=== PATIENT | male | born 1960 | race Caucasian/White ===

== ENCOUNTER 2025-06-30 01:23 | Inpatient (IN) | payer MEDICARE, MEDICAID ==
[~2025-06-30] VITALS: Ht 185.4 cm; Wt 95.5 kg
[2025-06-30] VITALS (14 sets, daily range): BP systolic 95–167; BP diastolic 62–96; PULSE 58–81; RESP 10–16; TEMP 97.3–98.9; O2SAT 92–98
[~2025-06-30 01:23] MED LIST: ASPI-1397 PO; CARV12.53 PO; CHLO25TA68 PO; ERGO50CA PO; FAMO40TA7 PO; HYDR-3968 PO; LOSA50TA64 PO; MIRT-87 PO; NALO4SPR22 BOTHNARES; NIFE-72 PO; ONDA-243 PO; POLY510P31 PO; ROSU20TA98 PO; TAMS-55 PO; ZINC220C7 PO; ZOLP-679 PO
--- NOTE | 2025-06-30 01:41 | Physician Documentation ---
History of Present Illness ~ Chief Complaint: ALOC Stated Complaint: ALOC Time Seen by MD: 01:30 HPI Patient presents to the emergency room sent from [facility] for altered mental status. Last time known normal two days ago. Patient has a history of similar presentation a proximally one month ago and was taken to [facility] with diagnosis of polypharmacy. Patient has multiple sedating medications including morphine in baclofen. That has reported that family saw him on Monday and he has pretty much been sleeping all weekend since that time. GCS of 13. EMS reports small change in patient's mentation after Narcan and given. CT scan at sending facility was reassuring. Medication Reconciliation Allergies: Coded Allergies: No Known Drug Allergies (Verified Allergy, Unknown, 05/21/25) lactose (Unverified Adverse Reaction, Unknown, 05/21/25) latose intolerant per pt Scheduled Aspirin (Aspirin EC), 1 TAB PO DAILY, (Reported) Carvedilol (Carvedilol), 1 TAB PO BID, (Reported) Chlorpromazine HCl (Chlorpromazine HCl), 1 TAB PO DAILY, (Reported) Ergocalciferol (Vitamin D2) (Vitamin D2), 1 CAP PO DAILY, (Reported) Famotidine (Famotidine), 1 TAB PO DAILY, (Reported) Losartan Potassium (Losartan Potassium), 1 TAB PO DAILY, (Reported) Mirtazapine (Mirtazapine), 1 TAB PO HS, (Reported) Naloxone HCl (Naloxone HCl), 1 SPRAYS BOTHNARES PRN, (Reported) Nifedipine (Nifedipine Er), 1 TAB PO DAILY, (Reported) Polyethylene Glycol 3350 ([id number]), 17 GM PO DAILY, (Reported) Rosuvastatin Calcium (Rosuvastatin Calcium), 1 TAB PO HS, (Reported) Tamsulosin Hcl* (Flomax*), 0.4 MG PO BID, (Reported) Zinc Sulfate (Zinc-220), 1 CAP PO DAILY, (Reported) Zolpidem Tartrate (Ambien), 1 TAB PO HS, (Reported) Scheduled PRN Hydrocodone Bit/Acetaminophen (Hydrocodon-Acetaminoph 7.5-325), 1 TAB PO Q4H PRN for breakthrough pain, (Reported) ONDANSETRON ODT 4mg tablet (Ondansetron Odt), 1 TAB PO every 4 to 6 hours PRN for nausea/vomiting, (Reported) Past Medical History Patient History: (Cancer) Malignant carcinoid tumor FATHER FH: hypertension FATHER Review of Systems ROS Review of systems limited secondary to patient's clinical condition Physical Exam Vital Signs: Temperature: 98.6, Source: Oral, Heart Rate: 65, Respiratory Rate: 14, BP: 148/78, Pulse Oximetry: 99, Weight: 95.450 Oxygen Flow Rate: 2.0 Physical Exam General: Patient is sleeping, arousable to name. Head: Normocephalic and atraumatic. Eyes: Conjunctival normal. EOMI. PERRL. ENT: Mucous membranes moist. Neck: Supple, trachea is midline. Chest: Clear to auscultation bilaterally without rales, rhonchi, or wheezes. There is no accessory muscle use or retractions. Cardiac: RRR without murmurs, gallops, or rubs. Abd: Soft, nondistended, nontender, with normoactive bowel sounds. No guarding, rebound, or rigidity. Progress Results/Orders Results/Orders Orders - SEBASTIAN GALINDO MD Electrocardiogram (06/30/25 01:30) Page Hospitalist (06/30/25 01:41) Fill Out Med Reconciliation (06/30/25 01:41) Completed Orders - SEBASTIAN GALINDO MD Cbc/Diff (06/30/25 01:30) Electrocardiogram (06/30/25 01:30) BMP (06/30/25 01:30) MG (06/30/25 01:32) PHOS (06/30/25 01:32) Hgb A1c (06/30/25 01:45) PBNP (06/30/25 01:45) C-Reactive Protein (06/30/25 01:45) Vital Signs 06/30/25 06/30/25 01:34 01:45 Temp 98.6 Pulse 65 Resp 14 18 B/P (MAP) 148/78 Pulse Ox 99 O2 Flow Rate 2.0 Laboratory Tests Test 06/30/25 01:45 White Blood Count 18.5 H Red Blood Count 3.64 L Hemoglobin 10.5 L Hematocrit 33.0 L Mean Corpuscular Volume 90.6 Mean Corpuscular Hemoglobin 28.9 Mean Corpuscular Hemoglobin Concent 31.9 L Red Cell Distribution Width 20.1 H Platelet Count 396 Mean Platelet Volume 8.6 Neutrophils (%) (Auto) 88.2 H Lymphocytes (%) (Auto) 2.9 L Monocytes (%) (Auto) 8.2 Eosinophils (%) (Auto) 0 Basophils (%) (Auto) 0.7 Neutrophils # (Auto) 16.4 H Lymphocytes # (Auto) 0.5 L Monocytes # (Auto) 1.5 H Eosinophils # (Auto) 0.0 Basophils # (Auto) 0.1 CBC Comment Sodium Level 145 Potassium Level 3.6 Chloride Level 100 Carbon Dioxide Level 32.5 H Anion Gap 13 Blood Urea Nitrogen 47 H Creatinine 8.58 H Estimated GFR/1.73 m2 6 BUN/Creatinine Ratio 5.5 L Glucose Level 113 H Hemoglobin A1c 5.5 Lactic Acid Level 0.8 Calcium Level 8.3 L Phosphorus Level 6.2 H Magnesium Level 2.4 C-Reactive Protein 3.79 H Pro-B-Type Natriuretic Peptide 88116 H Albumin 2.7 L Procalcitonin 2.06 H Chemistry Comments EKG/XRAY/CT/US/VASC/MRI EKG : Additional Comment EKG interpreted by myself shows time of 0140, rate 63, sinus rhythm, left axis deviation, nonspecific ST-T changes Medical Decision Making Additional information obtaine: old records Findings Patient presents to the emergency room with altered mental status. He presented previously like this in the thought was that patient was suffering from polypharmacy. Noted elevation of BUN. We will admit for further management and possible intervention Differential Dx:Considerations: Include: dehydration, Delirium Tr., DKA, encephalopathy, hypercalcemia, HHNC, hypoglycemia, hypernatremia, hyponatremia, hypoxia, postictal, closed head injury, C-spine injury, CVA, mass lesion, subarachnoid hemorrhage, drug overdose, encephalopathy, ETOH intoxication, medication toxicity, infection - meningitis, infection - sepsis, infection - UTI, heart failure, renal failure, respiratory failure, hyperthermia, hy pothermia, other Departure Admitted to Inpatient Unit: yes, to hospitalist Impression: Primary Impression: Altered mental status Additional Impressions: Uremia End stage renal disease Condition: Guarded Referrals: NO PRIMARY CARE PROVIDER (PCP) Signature Scribe Signature: No scribe Attestation: The note accurately reflects work and decisions made by me.Sebastian Galindo MD 06/30/25 19:49 SEBASTIAN GALINDO MD Jun 30, 2025 01:41
--- NOTE | 2025-06-30 01:43 | ELECTROCARDIOGRAPH REPORT ---
[facility] Test Date: 2025-06-30 Test Time: 01:40:17 Pat Name: KIERA SILVA Department: EMERGENCY ROOM Room: ED 2 Gender: M Oncology Coordinator: SHANDA : 1960 Requested By: PATRICA BILL Order Number: [id number] [place] Reading MD: Dr. Edmond Gray Measurements Intervals [place] Rate: 63 P: 38 OH: 229 QRS: -1 QRSD: 124 T: 93 QT: 495 QTc: 507 Interpretive Statements Sinus rhythm Prolonged OH interval Probable left atrial enlargement Nonspecific intraventricular conduction delay Consider anterior infarct Nonspecific T abnormalities, lateral leads Electronically Signed On 06-30-2025 6:59:[address] Edmond Gray Please click the below link to view image of tracing.
[2025-06-30 02:14] LABS: MEAN PLATELET VOLUME 8.6 FL (7.4-10.4); RED CELL DISTRIBUTION WIDTH 20.1 % (11.5-14.5)
--- NOTE | 2025-06-30 02:19 | HISTORY AND PHYSICAL-Residence ---
History & Physical Providers to CC Resident Creating Document: PAULOCOURTNEY, RAJ ~ History of Present Illness Reason for Admit\Complaint: Altered level of consciousness History of Present Illness This is a 65 year old male who is a transfer from [place], presented to the ED with altered level of consciousness. Patient was altered, drowsy, not responding to commands during time of examination, hence the history is taken from other medical records. He is a known end-stage renal disease patient on dialysis. He goes to dialysis on Monday, Monday, and Fridays. It is unknown if he missed any dialysis recently. Last time known normal two days ago. Patient has a history of similar presentation a proximally one month ago and was taken to [facility] with diagnosis of polypharmacy. Patient arrived at [place] ED with a GCS of 13. He was confused and was not able to answer any questions. He was hypotensive and tachycardic otherwise his vitals were normal. He had a white count of 18, CRP of 3.9 and lactic acid of 2.3. His procalcitonin was 1.7. His troponins were negative and his EKG showed no ST changes or arrhythmia. His electrolytes were normal as well. His creatinine was 8.8. He was only positive for opiates on his drug screen. EMS reported that he did have morphine and baclofen on his medication list. His niece stated that he had been sleeping very much over the last 2 days. Patient was transferred to our facility for higher level of care with dialysis services. Allergies: Coded Allergies: No Known Drug Allergies (Verified Allergy, Unknown, 05/21/25) lactose (Unverified Adverse Reaction, Unknown, 05/21/25) latose intolerant per pt Home Medications Home Medications Active Reported Naloxone HCl 4 Mg/Actuation [place] 1 Sprays BOTHNARES PRN Carvedilol 12.5 Mg Tablet 1 Tab PO BID Hydrocodon-Acetaminoph 7.5-325 (Hydrocodone Bit/Acetaminophen) 7.5 Mg-325 Mg Tablet 1 Tab PO Q4H PRN Aspirin EC (Aspirin) 81 Mg Tablet.dr 1 Tab PO DAILY Nifedipine Er (Nifedipine) 30 Mg Tablet.sa 1 Tab PO DAILY [id number] (Polyethylene Glycol 3350) 17 Gram/Dose Powder 17 Gm PO DAILY Rosuvastatin Calcium 20 Mg Tablet 1 Tab PO HS Losartan Potassium 50 Mg Tablet 1 Tab PO DAILY 30 Days Chlorpromazine HCl 25 Mg Tablet 1 Tab PO DAILY Vitamin D2 (Ergocalciferol (Vitamin D2)) 50 Mcg (2000 Unit) Capsule 1 Cap PO DAILY Zinc-220 (Zinc Sulfate) 50 Mg Zinc (220 Mg) Capsule 1 Cap PO DAILY Famotidine 40 Mg Tablet 1 Tab PO DAILY Flomax* (Tamsulosin HCl) 0.4 Mg Cap.sr.24h 0.4 Mg PO BID Ondansetron Odt (Ondansetron HCl) 4 Mg Tab.rapdis 1 Tab PO EVERY 4 TO 6 HOURS PRN Mirtazapine 15 Mg Tablet 1 Tab PO HS Ambien (Zolpidem Tartrate) 10 Mg Tablet 1 Tab PO HS Past Medical History Past Medical History Adjustment disorder GERD Hypertension Chronic pain BPH Malignant hypertension Esrd with electrolyte abnormalities Hepatic vein thrombosis Rotator cuff injury CAD Multiple myeloma Anemia in chronic kidney disease Acute DVT history Lateral subluxation of the patella 2/2 quadricep fracture postop total knee arthroplasty and chronic knee effusion Quadricep fracture postop total knee arthroplasty no acute change. Myoclonic jerks secondary to uremia Normocytic microchromic anemia Past Surgical History Surgical History Comment abdominal surgery, angioplasty, appendectomy splenectomy Status post total knee arthroplasty Status post CABG 5 vessel Family History Family History: (Cancer) Malignant carcinoid tumor FATHER FH: hypertension FATHER Past Social History Social History Comment Unable to obtain ROS ROS Unable to obtain Exam Vitals: Vital Signs Date Time Temp Pulse Resp B/P (MAP) Pulse Ox O2 Delivery O2 Flow Rate FiO2 06/30/25 01:34 98.6 65 14 148/78 99 2.0 General: General-patient drowsy, sleeping, not responding to commands HEENT-atraumatic normocephalic, neck supple without elevated JVD, no thyromegaly or carotid bruit. No lymphadenopathy bilaterally. Eyes-no icterus or pallor seen in eyes Chest-clear to auscultation bilaterally, breathing nonlabored no tachypnea, no wheezing, no crepitation, no crackles. Heart-S1-S2 normal, regular heart rate no murmur Abdomen bowel sounds positive on auscultation, soft nondistended. Neurology-unable to examine Extremity- no pedal edema. Peripheral pulses felt Diagnostic Data Last Recorded Lab Results: 07/01/25 0300 07/01/25 0300 Advance Care Planning Advanced Care plannin - 30 Minutes (Full code) Additional Plan Altered mental status Likely due to Acute toxic encephalopathy Patient currently drowsy, sleeping not answering questions CT brain done at [facility] showed no acute infarct, hemorrhage. Chest x-ray ordered. Follow-up Awaiting results of urine analysis. WBC elevated 18.5, procal ordered follow-up Lactic acid normal 0.8, CRP ordered, follow-up Please check patient's medication list once med rec is done Drug screen done at other facility was positive only for opiates. U tox, urine analysis ordered. Follow-up. ProBNP elevated [id number] Electrolytes were normal at [place], awaiting Current results. End-stage renal disease on dialysis- Dialysis on Monday, Monday, and Monday. Creatinine 8.58, BUN 47 EGFR 6 Consult Nephrology in the morning. Code status: Full code DVT profile: Heparin Diet: Regular [place] PGY-1 Date of Service: Jun 30, 2025 Billing Provider: CORRIE RAMIREZ MD Addendum Attestation I agree with the residents assessment and plan as below: 65 year old male with ESRD admitted with AMS Plan: nephrology for hd hold home meds follow ct head CCT 55 min using HIPPA compliant A/V technology COURTNEY GRVOE, RES Jun 30, 2025 02:19 CORRIE RAMIREZ MD Jul 01, 2025 22:08
[2025-06-30] MEDS ORDERED: potassium Cl 40MEQ/1/2NS 520ml 520 ML IV PRN (02:30)
[2025-06-30] MEDS ORDERED: magnesium Cl slow-release 64mg tablet PO PRN (02:30)
[2025-06-30] MEDS ORDERED: mag hydrox/Alum hydrox/simeth 30ml oral suspension PO PRN (02:30)
[2025-06-30] MEDS ORDERED: potassium Cl 20 mEq SR tablet PO PRN ×2 (02:30)
[2025-06-30] MEDS ORDERED: ondansetron/PF 4mg/2ml inj IV PRN (02:30)
[2025-06-30] MEDS ORDERED: magnesium sulf-water 2g/50mL 50 ML IV PRN (02:30)
[2025-06-30] MEDS ORDERED: magnesium sulf-water 4G/100mL 100 ML IV PRN (02:30)
[2025-06-30 02:38] LABS: CREATININE 8.58 MG/DL (0.60-1.10); PHOSPHORUS 6.2 MG/DL (2.3-4.5); PRO BRAIN NATRIURETIC PEPTIDE 14742 PG/ML (0-125); TOTAL CARBON DIOXIDE 32.5 MMOL/L (24-32); eCRCL 10 ML/MIN; eGFR 6 ML/MIN
--- NOTE | 2025-06-30 07:26 | RADIOLOGY REPORT ---
CHEST RADIOGRAPH Indication: Possible infection Technique: Single frontal view of the chest was obtained COMPARISON: DI CHEST,SINGLE VIEW on DOS: 04/07/25, DI CHEST,SINGLE VIEW on DOS: 02/13/25, DI CHEST,SINGLE VIEW on DOS: 01/26/25, DI CHEST,SINGLE VIEW on DOS: 04/01/24, CHEST,TWO VIEWS on DOS: 01/13/23 FINDINGS: Lines and Tubes: None Lungs: Increased interstitial prominence. This may represent pulmonary vascular congestion and/or viral pneumonia. Pleura: No effusion.No pneumothorax. Cardiomediastinal contours: Median sternotomy. Cardiomegaly. Bones: Unremarkable IMPRESSION: Increased interstitial prominence. This may represent pulmonary vascular congestion and/or viral pneumonia.
[2025-06-30] MEDS: levetiracetam-NACL1000mg/100ml 100 ML IV STA (07:29)
[2025-06-30] MEDS: docusate sod 100mg capsule PO SCH (08:00)
[2025-06-30] MEDS: K and/or MAG REPLACEMENT MC SCH (08:00)
[2025-06-30 08:46] LABS: ABG BASE EXCESS 4.7 mmol/L (-2.0-3.0); ABG HCO3 30.6 mmol/L (21.0-28.0); ABG OXYGEN SATURATION 92.0 % (94.0-98.0); ABG PCO2 (T) 51.7 mmHg (35.0-48.0); ABG PH (T) 7.390 (7.350-7.450); ABG PO2 (T) 67.5 mmHg (83.0-108.0); ALLEN'S TEST Modified; FCOHb 0.6 % (0.5-1.5); FHHb 7.9 % (0.0-5.0); FIO2 21.0 mmHg/%; FMetHb 0.3 % (0.0-1.5); FO2Hb 91.2 % (94.0-98.0); MODE ROOM AIR; PATIENT TEMPERATURE 37.0; TOTAL HEMOGLOBIN 11.2 G/dl (13.5-17.5)
--- NOTE | 2025-06-30 08:48 | RADIOLOGY REPORT ---
EXAM: CT CT HEAD INDICATION: SEIZURE. TECHNIQUE: CT of the head without intravenous contrast. Coronal and sagittal reformatted images are submitted. Radiation Dose : 1. Head: CT Dose: CTDI volume is 64.1 mGy. Dose-length product is 1173.9 mGy*cm The dose indicators for CT are the volume Computed Tomography (CT) Dose Index (CTDIvol) and the Dose Length Product (DLP), and are measured in units of mGy and mGy-cm, respectively. These indicators are not patient dose, but values generated from the CT scanner acquisition factors. The report includes radiation exposure data for exposures received during this examination. All CT scans at this medical facility are performed using dose modulation techniques as appropriate to a performed exam including the following: Automated exposure control was utilized; adjustment of the MA and/or KV according to patient size; and use of iterative reconstruction technique. COMPARISON: CT CT HEAD on DOS: 04/08/25. FINDINGS: There is no evidence of acute intracranial hemorrhage, extra-axial collection, mass effect, midline shift, herniation or hydrocephalus. The ventricles, sulci and cisterns are age appropriate. The alvarenga-white differentiation is intact. Calcifications segments of the vertebral arteries. The visualized paranasal sinuses and mastoid air cells are clear. No depressed calvarial fracture. The surrounding soft tissues are unremarkable. IMPRESSION: 1. No evidence of acute intracranial abnormality.
[2025-06-30] MEDS ORDERED: vancomycin inj 1,000 MG in normal saline 250ml IV soln 250 ML IV STA (08:55)
--- NOTE | 2025-06-30 09:06 | ELECTROCARDIOGRAPH REPORT ---
[facility] Test Date: 2025-06-30 Test Time: 07:07:24 Pat Name: KIERA SILVA Department: EMERGENCY ROOM Room: ED 2 1 Gender: M Eddy Current Inspector: PM : 1960 Requested By: ESTRELLITA SHEETS Order Number: [id number] Reading MD: Dr. Edmond Gray Measurements Intervals [place] Rate: 85 P: 59 MT: 224 QRS: 11 QRSD: 129 T: 99 QT: 446 QTc: 531 Interpretive Statements Sinus rhythm Prolonged MT interval Probable left atrial enlargement Nonspecific intraventricular conduction delay Anteroseptal infarct, old Nonspecific T abnormalities, lateral leads Electronically Signed On 06-30-2025 9:40:[address] Edmond Gray Please click the below link to view image of tracing.
[2025-06-30] MEDS: vancomycin/NS 1 GM ADD-VANTAGE 250 ML IV STA (09:15)
[2025-06-30] MEDS: heparin, porcine 5000 units/ml vial SQ SCH (10:24)
[2025-06-30] MEDS ORDERED: normal saline 1000ml 100 ML IV PRN (13:50)
[2025-06-30] MEDS: heparin 1,000 units/ml 10ml inj HE ONE ×2 (13:50)
[2025-06-30] MEDS: piperacillin/tazo 4.5gm/100ml 100 ML IV SCH (16:00)
--- NOTE | 2025-06-30 16:19 | CONSULTATION REPORT ---
Consult Providers to CC ~ History of Present Illness Reason for Admit\Complaint: Altered Mental State History of Present Illness This is a 65-year-old man with end-stage renal disease on hemodialysis (ESRD- HD), transferred from [facility] to [facility] for a higher level of care and dialysis intervention. He presented to the ED with altered mental status, found to be drowsy and unresponsive to commands. His dialysis schedule is reportedly Monday, Monday, , and Monday, but the timing of his last session is unclear. He was last seen in his usual state of compensated health two days prior. He has a history of a similar episode about one month ago, when he was admitted to [facility] and diagnosed with polypharmacy. On arrival at [place] ED, his GCS was 13; he was confused, unable to answer questions, hypotensive, and tachycardic. Other vital signs were stable. Laboratory findings included WBC 18,000, CRP 3.9, lactic acid 2.3, procalcitonin 1.7, and creatinine 8.8. EKG showed no ST/T changes or arrhythmias; troponin and electrolytes were normal. Urine drug screen was positive only for opiates. His medication list includes baclofen and morphine. His niece reported increased somnolence over the past two days. Current home medications: naloxone, carvedilol, hydrocodone/acetaminophen, enteric-coated aspirin, nifedipine, PEG 3350, rosuvastatin, losartan, chlorpromazine, vitamin D2, zinc, famotidine, tamsulosin (Flomax), ondansetron, mirtazapine, and zolpidem (Ambien). Allergies: Coded Allergies: No Known Drug Allergies (Verified Allergy, Unknown, 05/21/25) lactose (Unverified Adverse Reaction, Unknown, 05/21/25) latose intolerant per pt Home Medications Home Medications Active Reported Naloxone HCl 4 Mg/Actuation [place] 1 Sprays BOTHNARES PRN Carvedilol 12.5 Mg Tablet 1 Tab PO BID Hydrocodon-Acetaminoph 7.5-325 (Hydrocodone Bit/Acetaminophen) 7.5 Mg-325 Mg Tablet 1 Tab PO Q4H PRN Aspirin EC (Aspirin) 81 Mg Tablet.dr 1 Tab PO DAILY Nifedipine Er (Nifedipine) 30 Mg Tablet.sa 1 Tab PO DAILY [id number] (Polyethylene Glycol 3350) 17 Gram/Dose Powder 17 Gm PO DAILY Rosuvastatin Calcium 20 Mg Tablet 1 Tab PO HS Losartan Potassium 50 Mg Tablet 1 Tab PO DAILY 30 Days Chlorpromazine HCl 25 Mg Tablet 1 Tab PO DAILY Vitamin D2 (Ergocalciferol (Vitamin D2)) 50 Mcg (2000 Unit) Capsule 1 Cap PO DAILY Zinc-220 (Zinc Sulfate) 50 Mg Zinc (220 Mg) Capsule 1 Cap PO DAILY Famotidine 40 Mg Tablet 1 Tab PO DAILY Flomax* (Tamsulosin HCl) 0.4 Mg Cap.sr.24h 0.4 Mg PO BID Ondansetron Odt (Ondansetron HCl) 4 Mg Tab.rapdis 1 Tab PO EVERY 4 TO 6 HOURS PRN Mirtazapine 15 Mg Tablet 1 Tab PO HS Ambien (Zolpidem Tartrate) 10 Mg Tablet 1 Tab PO HS Past Medical History Past Medical History Reviewed Past Surgical History Surgical History Comment Reviewed Family History Family History: (Cancer) Malignant carcinoid tumor FATHER FH: hypertension FATHER Past Social History Social History Comment Reviewed Health Maintenance Health Maintenance Reviewed ROS ROS Unable to assess Exam Vitals: Vital Signs Date Time Temp Pulse Resp B/P (MAP) Pulse Ox O2 Delivery O2 Flow Rate FiO2 06/30/25 15:30 76 12 124/74 (91) 97 Room Air 06/30/25 14:15 98.9 06/30/25 05:33 0 Somnolent, disoriented RRR w/o murmur, no JVD CTAB, no wheezes +BS, NT 2+ edema Diagnostic Data Last Recorded Lab Results: 06/30/25 0145 06/30/25 0145 Problems: (1) Secondary hyperparathyroidism (of renal origin) Assessment & Plan: Secondary Hyperparathyroidism Ca 8.3, phosphorus 6.2 (elevated), vitamin D2 on board. Plan: Continue vitamin D analog. Consider phosphate binders when able to eat meals. Monitor PTH, calcium, phosphorus. (2) Iron (Fe) deficiency anemia Assessment & Plan: Iron Deficiency Iron studies not provided; anemia present. Plan: Check ferritin and TSAT. Supplement iron if indicated. (3) Altered mental status Status: Acute Assessment & Plan: Altered Mental Status/Encephalopathy Likely multifactorial: uremia, polypharmacy (notably baclofen, morphine, zolpidem, chlorpromazine), possible infection. Plan: Hold or discontinue HOUSEKEEPER AND LAUNDRY ASSISTANT depressants (baclofen, morphine, zolpidem, chlorpromazine). Monitor for improvement post-dialysis. Evaluate for infection/sepsis. Polypharmacy Multiple HOUSEKEEPER AND LAUNDRY ASSISTANT depressants and high-risk medications for elderly/ESRD. Plan: Review and rationalize medication list. Discontinue or minimize sedating and nephrotoxic agents. (4) ESRD (end stage renal disease) on dialysis Status: Chronic Assessment & Plan: ESRD on Hemodialysis, M, W, F schedule Recent missed or delayed dialysis session possible; unclear last session. Volume status, uremia, and toxin accumulation may be contributing to encephalopathy. Plan: Resume regular HD schedule; today. Monitor volume, electrolytes, and mental status. All relevant labs and reports were reviewed to develop this dialysis prescription today iHD 3 Hours Access TDC Dialyzer Elisio 15H BFR 300 DFR 2 X BFR Na 140 K 4 HCO3 34 Ca 2.5 KIM 0K Units Albumin N Mannitol N UF 0-2 liters as tolerated Volume Status BNP markedly elevated (14,742); consider volume overload. Plan: Assess clinically for signs of overload. Adjust ultrafiltration during dialysis as needed. (5) Hypertension Assessment & Plan: Hypertension BP currently 140/78; on carvedilol, nifedipine, losartan. Plan: Continue current regimen; monitor for hypotension, especially bobbi- dialysis (6) Anemia Status: Acute Assessment & Plan: Anemia of CKD, goal Hgb between 10-12 gm/dL Hgb 10.5, Hct 33. Plan: Continue KIM and iron supplementation as indicated. Monitor iron studies, reticulocyte count, and adjust therapy as needed. Additional Plan Naloxone: Keep available for opioid overdose risk due to chronic opioid use. Carvedilol: Continue; monitor for bradycardia and hypotension. Hydrocodone/Acetaminophen: Minimize use; increased risk of HOUSEKEEPER AND LAUNDRY ASSISTANT depression in ESRD. Aspirin (enteric-coated): Continue if no contraindication (e.g., GI bleed, anemia). Nifedipine: Continue; monitor blood pressure. PEG 3350: Continue as needed for constipation; monitor for dehydration. Rosuvastatin: Continue; monitor for myopathy, especially in CKD. Losartan: Continue if potassium and renal function allow; monitor K+ and BP. Chlorpromazine: High risk of sedation and delirium in elderly/ESRD; consider dose reduction or discontinuation. Vitamin D2: Continue for secondary hyperparathyroidism; monitor calcium, phosphorus, and PTH. Zinc: Continue if indicated. Famotidine: Continue; adjust dose for renal function. Tamsulosin (Flomax): Continue if symptomatic for BPH. Ondansetron: Continue as needed for nausea; monitor QTc. Mirtazapine: Continue; monitor for sedation. Zolpidem (Ambien): High risk of delirium and falls in elderly/ESRD; strongly consider discontinuation. Baclofen: Avoid or minimize in ESRD due to risk of accumulation and HOUSEKEEPER AND LAUNDRY ASSISTANT depression. Morphine: Avoid in ESRD due to risk of neurotoxicity and metabolite accumulation. Sepsis Screening Skin Color: Normal WALL,JASVIR M III DO Jun 30, 2025 16:19
[2025-06-30] MEDS: Levetiracetam-NACL 500mg/100ml 100 ML IV SCH (19:26)
--- NOTE | 2025-06-30 20:32 | PROGRESS NOTE ---
Daily Progress Note Providers to CC ~ Antibiotic Timeout Antibiotic Ordered?: Yes Subjective I received a page this morning that the patient has a has a seizure and that has vomited in postictal the patient has a history of tonic-clonic activity due to hyper uremia however post dialysis the patient continues to have these episodes I did consult tele neurology which has not yet evaluated the patient the patient did have a dialysis treatment today and the patient is quite lethargic at this time and will open his eyes for a brief period of time Objective Vital Signs Date Time Temp Pulse Resp B/P (MAP) Pulse Ox O2 Delivery O2 Flow Rate FiO2 06/30/25 17:42 98.6 80 15 142/68 (92) 97 Room Air 06/30/25 05:33 0 Result Diagram: 06/30/2514406/30/25144 Gen. No acute distress lethargic Lungs clear to ascultation bilaterally, no wheezes rales or rhonchi appreciated Heart normal sinus rhythm no murmurs rubs or clicks noted Abdomen soft nontender bowel sounds are normoactive Lower extremities no clubbing cyanosis, nor edema appreciated bilaterally Problem\Assessment\Plan Problems/Diagnosis: (1) Altered mental status # encephalopathy likely mixed both toxic and metabolic # possible seizures versus myoclonic jerks secondary to uremia Tele neurology consult is ordered On IV Keppra for now The patient continues to have myoclonic jerks post dialysis Dr. Thompson art supervisor recommended avoiding or minimizing baclofen in end-stage renal disease in his avoid morphine in end-stage renal disease due to neurotoxicity as well as Ambien however to continue mirtazapine # sirs # leukocytosis with elevated procalcitonin Blood cultures has been obtained IV Zosyn IV vancomycin # end-stage renal disease on dialysis Monday and Monday The patient received dialysis today in his followed by art supervisor Dr. hTompson # anemia likely secondary to end-stage renal disease Continue monitor daily CBC Will likely require Epogen injections per Nephrology # DVT prophylaxis SQ heparin Sepsis Screening Skin Color: Normal Date of Service: Jun 30, 2025 Billing Provider: ESTRELLITA SHEETS DO Common Visit Codes: NOT BILLABLE (Admitted after midnight to be billed by wire worker) ESTRELLITA SHEETS DO Jun 30, 2025 20:32
[2025-06-30] MEDS: hydrALAZINE 20mg/ml inj. IV PRN (23:22)
[2025-07-01] VITALS (17 sets, daily range): BP systolic 115–185; BP diastolic 66–97; PULSE 66–96; RESP 12–20; TEMP 97.3–98.4; O2SAT 93–98
--- NOTE | 2025-07-01 02:21 | [facility] CONSULT REPORT ---
[facility] Procedure Note [facility] Procedure Note Consult [facility] Note # Demographics Consult Type: General Neurology Patient Location: Inpatient First Name: Mendez Last Name: Leonardo Date of : 1960 Age: 65 Gender: Male Facility: [facility] Time of Initial Page (): 06/30/2025 22:41 First Contact with Site (): 06/30/2025 22:43 # HPI History: 65 yo man admitted earlier today in the setting of myoclonic jerking and confusion. He's also on warfarin, nephrology recommended to reduce or stop baclofen /morphine. Neurology consulted for AMS, myoclonic jerking. Hx of Myoclonic activity when uremic, ESRD/HD, CR of 8 on admission. He was started on keppra. # Scores Time of exam and NIHSS (): 06/30/2025 23:58 Level of Consciousness 1a: [1] = Not alert; but arousable by minor stim LOC Questions 1b: [2] = Answers neither correctly LOC Commands 1c: [2] = Performs neither correctly Best Gaze 2: [0] = Normal Visual 3: [0] = No visual loss Facial Palsy 4: [0] = Normal symmetrical movements Motor Arm Left 5a: [3] = No effort against gravity Motor Arm Right 5b: [3] = No effort against gravity Motor Leg Left 6a: [3] = No effort against gravity Motor Leg Right 6b: [3] = No effort against gravity Limb Ataxia 7: [0] = Absent Sensory 8: [0] = Normal Best Language 9: [1] = Zqmv-ri-bjputgdr aphasia Dysarthria 10: [1] = Vapk-ms-ryotceip dysarthria Extinction and Inattention 11: [0] = No abnormality NIHSS Total: 19 # Data Head CT: - no bleed # Assessment Impression: metabolic encephalopathy, myoclonic jerking in setting of uremia low suspicion of seizures at this time. Agree with reducing baclofen/morphine for encephalopathy. Differential also includes baclofen toxicity, which does place people at risk for seizures. # Plan Other: - If patient has any neurological deterioration please call me back immediately Additional Recommendations: Routine EEG in AM ok to DC keppra for now if any definite seizure call back MRI brain wo contrast if not improving. # Logistics Attestation of consult completion: The patient is located at: [facility]. Facility staff participated in the visit. I performed this telemedicine visit from my offsite office utilizing interactive 2 way audio and visual telecommunication technology at the request of the onsite inpatient provider. Total time spent in telemedicine encounter: I spent 33 minutes reviewing clinical data and/or imaging, obtaining history, examining the patient, communicating with the onsite care team, and in preparation of this report. # Demographics First Name: Mendez Last Name: Leonardo Facility: [facility] Neuro Consult Order placed for: Yes JUNE RODRIGUEZ DO Jul 01, 2025 02:20
[2025-07-01] MEDS: VANCOMYCIN RANDOM LEVEL IV SCH (03:15)
[2025-07-01 03:16] LABS: MEAN PLATELET VOLUME 8.8 FL (7.4-10.4); RED CELL DISTRIBUTION WIDTH 19.6 % (11.5-14.5)
[2025-07-01 03:20] LABS: CHOL/HDL RATIO 2.8 (0.00-4.99); CREATININE 7.87 MG/DL (0.60-1.10); LDL CHOLESTEROL 55 MG/DL (50-100); TOTAL CARBON DIOXIDE 29.8 MMOL/L (24-32); eCRCL 11 ML/MIN; eGFR 7 ML/MIN
--- NOTE | 2025-07-01 07:10 | PROGRESS NOTE ---
Progress Note Dictate Providers to CC ~ Progress Note: This is a 65-year-old man with end-stage renal disease on hemodialysis (ESRD- HD), transferred from [facility] to [facility] for a higher level of care and dialysis intervention. He presented to the ED with altered mental status, found to be drowsy and unresponsive to commands. His dialysis schedule is reportedly Monday, Monday, , and Monday, but the timing of his last session is unclear. He was last seen in his usual state of compensated health two days prior. He has a history of a similar episode about one month ago, when he was admitted to [facility] and diagnosed with polypharmacy. On arrival at [facility], his GCS was 13; he was confused, unable to answer questions, hypotensive, and tachycardic. Other vital signs were stable. Laboratory findings included WBC 18,000, CRP 3.9, lactic acid 2.3, procalcitonin 1.7, and creatinine 8.8. EKG showed no ST/T changes or arrhythmias; troponin and electrolytes were normal. Urine drug screen was positive only for opiates. His medication list includes baclofen and morphine. His niece reported increased somnolence over the past two days. Current home medications: naloxone, carvedilol, hydrocodone/acetaminophen, enteric-coated aspirin, nifedipine, PEG 3350, rosuvastatin, losartan, chlorpromazine, vitamin D2, zinc, famotidine, tamsulosin (Flomax), ondansetron, mirtazapine, and zolpidem (Ambien). Antibiotic Ordered?: N/A Subjective Subjective Still considerable confusion this morning, unable to recognize me my name although I know him well, we will plan for additional dialysis today for additional clearance, I do not believe this is a postictal state, reviewed neurology consultation note Objective Vitals Vital Signs Date Time Temp Pulse Resp B/P (MAP) Pulse Ox O2 Delivery O2 Flow Rate FiO2 07/01/25 13:37 81 07/01/25 12:55 97.9 15 166/92 (116) 97 Room Air 06/30/25 05:33 0 Confused, disoriented Regular rate and rhythm without murmur, no JVD Clear to auscultation bilaterally without wheezes Positive bowel sounds, nontender, 1+ edema mid calf Lab Results: 07/01/25 0300 07/01/25 0300 Other Results I & O 07/01/25 07:00 Intake Total 600 ml Output Total 2800 ml Balance -2200 ml Intake IV Total 100 ml Hemodialysis 500 ml Output Hemodialysis 2800 ml Problem\Assessment\Plan Problems/Diagnosis: (1) Secondary hyperparathyroidism (of renal origin) Assessment & Plan: Secondary Hyperparathyroidism Ca 8.3, phosphorus 6.2 (elevated), vitamin D2 on board. Plan: Continue vitamin D analog. Consider phosphate binders when able to eat meals. Monitor PTH, calcium, phosphorus. (2) Iron (Fe) deficiency anemia Assessment & Plan: Iron Deficiency Iron studies not provided; anemia present. Plan: Check ferritin and TSAT. Supplement iron if indicated. (3) Altered mental status Assessment & Plan: Altered Mental Status/Encephalopathy Likely multifactorial: uremia, polypharmacy (notably baclofen, morphine, zolpidem, chlorpromazine), possible infection. Plan: Hold or discontinue BRIM STITCHER depressants (baclofen, morphine, zolpidem, chlorpromazine). Monitor for improvement post-dialysis. Evaluate for infection/sepsis. Polypharmacy Multiple BRIM STITCHER depressants and high-risk medications for elderly/ESRD. Plan: Review and rationalize medication list. Discontinue or minimize sedating and nephrotoxic agents. (4) ESRD (end stage renal disease) on dialysis Assessment & Plan: ESRD on Hemodialysis, M, W, F schedule Recent missed or delayed dialysis session possible; unclear last session. Volume status, uremia, and toxin accumulation may be contributing to encephalopathy. Plan: Resume regular HD schedule; today. Monitor volume, electrolytes, and mental status. Additional dialysis today for more clearance, no UF All relevant labs and reports were reviewed to develop this dialysis prescription today iHD 3 Hours Access TDC Dialyzer Elisio 15H BFR 300 DFR 2 X BFR Na 140 K 4 HCO3 34 Ca 2.5 KIM 0K Units Albumin N Mannitol N UF 0 liters as tolerated Volume Status BNP markedly elevated (14,742); consider volume overload. Plan: Assess clinically for signs of overload. Adjust ultrafiltration during dialysis as needed. (5) Hypertension Assessment & Plan: Hypertension, improved with dialysis and UF removal. BP currently 140/78; on carvedilol, nifedipine, losartan. Plan: Continue current regimen; monitor for hypotension, especially bobbi- dialysis (6) Anemia Assessment & Plan: Anemia of CKD, goal Hgb between 10-12 gm/dL Hgb 10.5, Hct 33. Plan: Continue KIM and iron supplementation as indicated. Monitor iron studies, reticulocyte count, and adjust therapy as needed. Sepsis Screening Skin Color: Normal WALL,JASVIR M III DO Jul 01, 2025 07:10
[2025-07-01] MEDS ORDERED: vancomycin/NS 1 GM ADD-VANTAGE 250 ML X 1 DOSE IV ONE (08:00)
[2025-07-01] MEDS ORDERED: normal saline 1000ml 100 ML IV PRN (08:10)
[2025-07-01] MEDS: HYDROmorphone inj. 0.5 MG/0.5 ML DISP.SYRIN IV PRN (10:49)
[2025-07-01] MEDS: acetaminophen 1,000mg/100ml IV 100 ML IV PRN (15:05)
[2025-07-01] MEDS: Nepro carb steady vanilla 8oz. PO SCH (17:30)
--- NOTE | 2025-07-01 19:47 | PROGRESS NOTE ---
Daily Progress Note Providers to CC ~ Antibiotic Timeout Antibiotic Ordered?: No Subjective The patient's cognition has slightly improved this morning and was able to have a conversation with the patient however he is still was unable to understand the vast majority of what I spoke to the patient about however I got a report from the patient's RN this afternoon that his cognition is improving and he was able to verbalize where he was hurting and there was a adjustments made in his positioning which helped his pain significantly Objective Vital Signs Date Time Temp Pulse Resp B/P (MAP) Pulse Ox O2 Delivery O2 Flow Rate FiO2 07/01/25 15:00 97.4 94 18 171/68 (102) 97 Room Air 06/30/25 05:33 0 Result Diagram: 07/01/25 0300 07/01/25 0300 Gen. No acute distress confused Lungs clear to ascultation bilaterally, no wheezes rales or rhonchi appreciated Heart normal sinus rhythm no murmurs rubs or clicks noted Abdomen soft nontender bowel sounds are normoactive Lower extremities no clubbing cyanosis, nor edema appreciated bilaterally Problem\Assessment\Plan Problems/Diagnosis: (1) Altered mental status # encephalopathy likely mixed both toxic and metabolic # possible seizures versus myoclonic jerks secondary to uremia Tele neurology consult is ordered On IV Keppra for now The patient continues to have myoclonic jerks post dialysis Dr. Thompson crane ladle person recommended avoiding or minimizing baclofen in end-stage renal disease in his avoid morphine in end-stage renal disease due to neurotoxicity as well as Ambien however to continue mirtazapine 07/01 I spoke with tele neurologist last evening Dr. Noni CARNEY who assessed that the patient highly likely did not have seizures and that this was consistent with the myoclonic jerks which if not improved in three days then would recommend an continuous EEG however these jerks have since significantly improved and thus is consistent with a mild clonic jerks. The patient is cognition is improving today as well # sirs # leukocytosis with elevated procalcitonin Blood cultures has been obtained IV Zosyn IV vancomycin 07/01 leukocytosis is improving and blood cultures are negative x1 day # end-stage renal disease on dialysis Monday and Monday The patient received dialysis today in his followed by crane ladle person Dr. Thompson # anemia likely secondary to end-stage renal disease Continue monitor daily CBC Will likely require Epogen injections per Nephrology 07/01 stable # DVT prophylaxis SQ heparin Sepsis Screening Skin Color: Normal Date of Service: Jul 01, 2025 Billing Provider: ESTRELLITA SHEETS DO Common Visit Codes: [id number] INP/OBS CARE(HIGH) ESTRELLITA SHEETS DO Jul 01, 2025 19:47
[2025-07-01] MEDS: vancomycin/NS 1 GM ADD-VANTAGE 250 ML X 1 DOSE IV ONE (20:00)
[2025-07-02] VITALS (8 sets, daily range): BP systolic 141–168; BP diastolic 67–85; PULSE 74–97; RESP 9–19; TEMP 97.4–98.8; O2SAT 95–98
[2025-07-02 02:43] LABS: MEAN PLATELET VOLUME 8.4 FL (7.4-10.4); RED CELL DISTRIBUTION WIDTH 19.6 % (11.5-14.5)
[2025-07-02 02:53] LABS: CREATININE 7.40 MG/DL (0.60-1.10); TOTAL CARBON DIOXIDE 30.9 MMOL/L (24-32); eCRCL 11 ML/MIN; eGFR 7 ML/MIN
[2025-07-02 02:54] LABS: PHOSPHORUS 6.0 MG/DL (2.3-4.5)
[2025-07-02] MEDS: vancomycin/NS 1 GM ADD-VANTAGE 250 ML IV PRN (04:14)
[2025-07-02 06:45] LABS: HBSAG SCREEN Negative (Negative)
--- NOTE | 2025-07-02 07:46 | PROGRESS NOTE ---
Progress Note Dictate Providers to CC ~ Progress Note: This is a 65-year-old man with end-stage renal disease on hemodialysis (ESRD- HD), transferred from [facility] to [facility] for a higher level of care and dialysis intervention. He presented to the ED with altered mental status, found to be drowsy and unresponsive to commands. His dialysis schedule is reportedly Monday, Monday, , and Monday, but the timing of his last session is unclear. He was last seen in his usual state of compensated health two days prior. He has a history of a similar episode about one month ago, when he was admitted to [facility] and diagnosed with polypharmacy. On arrival at [facility], his GCS was 13; he was confused, unable to answer questions, hypotensive, and tachycardic. Other vital signs were stable. Laboratory findings included WBC 18,000, CRP 3.9, lactic acid 2.3, procalcitonin 1.7, and creatinine 8.8. EKG showed no ST/T changes or arrhythmias; troponin and electrolytes were normal. Urine drug screen was positive only for opiates. His medication list includes baclofen and morphine. His niece reported increased somnolence over the past two days. Current home medications: naloxone, carvedilol, hydrocodone/acetaminophen, enteric-coated aspirin, nifedipine, PEG 3350, rosuvastatin, losartan, chlorpromazine, vitamin D2, zinc, famotidine, tamsulosin (Flomax), ondansetron, mirtazapine, and zolpidem (Ambien). Antibiotic Ordered?: N/A Subjective Subjective Much more alert today, recognized me by name Objective Vitals Vital Signs Date Time Temp Pulse Resp B/P (MAP) Pulse Ox O2 Delivery O2 Flow Rate FiO2 07/02/25 15:00 97.4 97 9 142/67 (92) 97 Room Air 06/30/25 05:33 0 Alert RRR w/o murmur CTAB +BS, NT 1+ edema Lab Results: 07/02/25 0230 07/02/25 0230 Problem\Assessment\Plan Problems/Diagnosis: (1) Secondary hyperparathyroidism (of renal origin) Assessment & Plan: Secondary Hyperparathyroidism Ca 8.3, phosphorus 6.2 (elevated), vitamin D2 on board. Plan: Continue vitamin D analog. Consider phosphate binders when able to eat meals. Monitor PTH, calcium, phosphorus. (2) Iron (Fe) deficiency anemia Assessment & Plan: Iron Deficiency Iron studies not provided; anemia present. Plan: Check ferritin and TSAT. Supplement iron if indicated. (3) Altered mental status Assessment & Plan: Altered Mental Status/Encephalopathy Likely multifactorial: uremia, polypharmacy (notably baclofen, morphine, zolpidem, chlorpromazine), possible infection. Plan: Hold or discontinue DIGITAL TECHNICIAN depressants (baclofen, morphine, zolpidem, chlorpromazine). Monitor for improvement post-dialysis. Evaluate for infection/sepsis. Polypharmacy Multiple DIGITAL TECHNICIAN depressants and high-risk medications for elderly/ESRD. Plan: Review and rationalize medication list. Discontinue or minimize sedating and nephrotoxic agents. (4) ESRD (end stage renal disease) on dialysis Assessment & Plan: ESRD on Hemodialysis, continue M, W, F schedule at discharge Recent missed or delayed dialysis session possible; unclear last session. Volume status, uremia, and toxin accumulation may be contributing to encephalopathy. Plan: Resume regular HD schedule; today. Monitor volume, electrolytes, and mental status. Plan on dialysis tomorrow. All relevant labs and reports were reviewed to develop this dialysis prescription today iHD 3 Hours Access TDC Dialyzer Elisio 15H BFR 300 DFR 2 X BFR Na 140 K 4 HCO3 34 Ca 2.5 KIM 0K Units Albumin N Mannitol N UF 0 liters as tolerated Volume Status BNP markedly elevated (14,742); consider volume overload. Plan: Assess clinically for signs of overload. Adjust ultrafiltration during dialysis as needed. (5) Hypertension Assessment & Plan: Hypertension, improved with dialysis and UF removal. BP currently 140/78; on carvedilol, nifedipine, losartan. Plan: Continue current regimen; monitor for hypotension, especially bobbi- dialysis (6) Anemia Assessment & Plan: Anemia of CKD, goal Hgb between 10-12 gm/dL Hgb 10.5, Hct 33. Plan: Continue KIM and iron supplementation as indicated. Monitor iron studies, reticulocyte count, and adjust therapy as needed. Sepsis Screening Skin Color: Normal WALL,JASVIR M III DO Jul 02, 2025 07:46
--- NOTE | 2025-07-02 08:29 | RADIOLOGY REPORT ---
Date: 07/02/2025 08:10 AM Examination: DI ABDOMEN,SINGLE VIEW(KUB) History: abdominal pain Comparison: US ULTRASOUND OF ABDOMEN on DOS: 01/27/25 TECHNIQUE: Frontal views of the abdomen was obtained. FINDINGS: Bowel gas pattern is unremarkable. The lung bases are unremarkable. No acute osseous abnormality identified. IMPRESSION: Nonobstructive bowel gas pattern.
[2025-07-02] MEDS: calcium acetate 667mg (PhosLO) capsule PO SCH (08:55)
[2025-07-02] MEDS: magnesium hydroxide 30ml (MOM) UD suspension PO PRN (08:56)
--- NOTE | 2025-07-02 18:27 | PROGRESS NOTE ---
Daily Progress Note Providers to CC ~ Antibiotic Timeout Antibiotic Ordered?: Yes Subjective The patient is significantly more oriented today and is aware he is in the hospital and was able to recall the year I did inform him he needs to stop taking baclofen and Ambien Objective Vital Signs Date Time Temp Pulse Resp B/P (MAP) Pulse Ox O2 Delivery O2 Flow Rate FiO2 07/02/25 15:00 97.4 97 9 142/67 (92) 97 Room Air 06/30/25 05:33 0 Result Diagram: 07/02/25 0230 07/02/25 0230 Gen. No acute distress alert and oriented to person, place and year Lungs clear to ascultation bilaterally, no wheezes rales or rhonchi appreciated Heart normal sinus rhythm no murmurs rubs or clicks noted Abdomen soft nontender bowel sounds are normoactive Lower extremities no clubbing cyanosis, nor edema appreciated bilaterally Problem\Assessment\Plan Problems/Diagnosis: (1) Altered mental status # encephalopathy likely mixed both toxic and metabolic # possible seizures versus myoclonic jerks secondary to uremia Tele neurology consult is ordered On IV Keppra for now The patient continues to have myoclonic jerks post dialysis Dr. Thompson ux designer recommended avoiding or minimizing baclofen in end-stage renal disease in his avoid morphine in end-stage renal disease due to neurotoxicity as well as Ambien however to continue mirtazapine 07/01 I spoke with tele neurologist last evening Dr. Noni CARNEY who assessed that the patient highly likely did not have seizures and that this was consistent with the myoclonic jerks which if not improved in three days then would recommend an continuous EEG however these jerks have since significantly improved and thus is consistent with a mild clonic jerks. The patient is cognition is improving today as well 07/02 significantly improved and close to baseline I did inform the patient of the importance of stopping baclofen in the Ambien # sirs # leukocytosis with elevated procalcitonin Blood cultures has been obtained IV Zosyn IV vancomycin 07/01 leukocytosis is improving and blood cultures are negative x1 day 07/02 leukocytosis resolved the patient is afebrile. No signs of sepsis # end-stage renal disease on dialysis Monday and Monday The patient received dialysis today in his followed by ux designer Dr. Thompson # anemia likely secondary to end-stage renal disease Continue monitor daily CBC Will likely require Epogen injections per Nephrology 07/01 stable # DVT prophylaxis SQ heparin Sepsis Screening Skin Color: Normal Date of Service: Jul 02, 2025 Billing Provider: ESTRELLITA SHEETS DO Common Visit Codes: [id number] INP/OBS CARE(HIGH) ESTRELLITA SHEETS DO Jul 02, 2025 18:27
[2025-07-02] MEDS: piperacillin/tazo 4.5gm/100ml 100 ML IV SCH (20:29)
[2025-07-02] MEDS ORDERED: polyvinyl alcohol eye drops 15ML BOTTLE EACHEYE PRN (23:55)
[2025-07-03] VITALS (14 sets, daily range): BP systolic 122–159; BP diastolic 66–89; PULSE 75–88; RESP 14–19; TEMP 96.1–98; O2SAT 94–98
[2025-07-03 03:09] LABS: MEAN PLATELET VOLUME 8.7 FL (7.4-10.4); RED CELL DISTRIBUTION WIDTH 19.7 % (11.5-14.5)
[2025-07-03 03:23] LABS: CREATININE 9.19 MG/DL (0.60-1.10); PHOSPHORUS 6.4 MG/DL (2.3-4.5); TOTAL CARBON DIOXIDE 28.6 MMOL/L (24-32); eCRCL 9 ML/MIN; eGFR 6 ML/MIN
[2025-07-03] MEDS: heparin 1,000unit/ml 10ml vial 10 ML IV ONE (07:26)
[2025-07-03] MEDS: heparin 1,000 units/ml 10ml inj IV ONE (07:26)
[2025-07-03] MEDS ORDERED: normal saline 1000ml 100 ML IV PRN (08:00)
[2025-07-03] MEDS: aspirin 81mg, enteric-coated 1 TAB TABLET.DR PO SCH (08:37)
[2025-07-03] MEDS: NIFEdipine XL 30mg tablet PO SCH (08:38)
--- NOTE | 2025-07-03 15:45 | PROGRESS NOTE ---
Progress Note Dictate Providers to CC ~ Progress Note: This is a 65-year-old man with end-stage renal disease on hemodialysis (ESRD- HD), transferred from [facility] to [facility] for a higher level of care and dialysis intervention. He presented to the ED with altered mental status, found to be drowsy and unresponsive to commands. His dialysis schedule is reportedly Monday, Monday, , and Monday, but the timing of his last session is unclear. He was last seen in his usual state of compensated health two days prior. He has a history of a similar episode about one month ago, when he was admitted to [facility] and diagnosed with polypharmacy. On arrival at [facility], his GCS was 13; he was confused, unable to answer questions, hypotensive, and tachycardic. Other vital signs were stable. Laboratory findings included WBC 18,000, CRP 3.9, lactic acid 2.3, procalcitonin 1.7, and creatinine 8.8. EKG showed no ST/T changes or arrhythmias; troponin and electrolytes were normal. Urine drug screen was positive only for opiates. His medication list includes baclofen and morphine. His niece reported increased somnolence over the past two days. Current home medications: naloxone, carvedilol, hydrocodone/acetaminophen, enteric-coated aspirin, nifedipine, PEG 3350, rosuvastatin, losartan, chlorpromazine, vitamin D2, zinc, famotidine, tamsulosin (Flomax), ondansetron, mirtazapine, and zolpidem (Ambien). Antibiotic Ordered?: N/A Subjective Subjective Doing well today, needs PT intense therapy Objective Vitals Vital Signs Date Time Temp Pulse Resp B/P (MAP) Pulse Ox O2 Delivery O2 Flow Rate FiO2 07/03/25 15:00 97.3 79 15 127/67 (87) 97 Room Air 07/03/25 08:00 0.0 Alert RRR w/o murmur CTAB +BS, NT No edema Lab Results: 07/03/25 0255 07/03/25 0255 Other Results I & O 07/03/25 07:00 Intake Total 700 ml Balance 700 ml Intake Oral 700 ml Problem\Assessment\Plan Problems/Diagnosis: (1) Secondary hyperparathyroidism (of renal origin) Assessment & Plan: Secondary Hyperparathyroidism Ca 8.3, phosphorus 6.2 (elevated), vitamin D2 on board. Plan: Continue vitamin D analog. Consider phosphate binders when able to eat meals. Monitor PTH, calcium, phosphorus. (2) Iron (Fe) deficiency anemia Assessment & Plan: Iron Deficiency Iron studies not provided; anemia present. Plan: Check ferritin and TSAT. Supplement iron if indicated. (3) Altered mental status Assessment & Plan: Altered Mental Status/Encephalopathy Likely multifactorial: uremia, polypharmacy (notably baclofen, morphine, zolpidem, chlorpromazine), possible infection. Plan: Hold or discontinue H[employer] depressants (baclofen, morphine, zolpidem, chlorpromazine). Monitor for improvement post-dialysis. Evaluate for infection/sepsis. Polypharmacy Multiple H[employer] depressants and high-risk medications for elderly/ESRD. Plan: Review and rationalize medication list. Discontinue or minimize sedating and nephrotoxic agents. (4) ESRD (end stage renal disease) on dialysis Assessment & Plan: ESRD on Hemodialysis, continue M, W, F schedule at discharge Recent missed or delayed dialysis session possible; unclear last session. Volume status, uremia, and toxin accumulation may be contributing to encephalopathy. Plan: Resume regular HD schedule; today. Monitor volume, electrolytes, and mental status. Plan on dialysis tomorrow. All relevant labs and reports were reviewed to develop this dialysis prescription today iHD 3 Hours Access TDC Dialyzer Elisio 15H BFR 300 DFR 2 X BFR Na 140 K 4 HCO3 34 Ca 2.5 KIM 0K Units Albumin N Mannitol N UF 0 liters as tolerated Volume Status BNP markedly elevated (14,742); consider volume overload. Plan: Assess clinically for signs of overload. Adjust ultrafiltration during dialysis as needed. (5) Hypertension Assessment & Plan: Hypertension, improved with dialysis and UF removal. BP currently 140/78; on carvedilol, nifedipine, losartan. Plan: Continue current regimen; monitor for hypotension, especially bobbi- dialysis (6) Anemia Assessment & Plan: Anemia of CKD, goal Hgb between 10-12 gm/dL Hgb 10.5, Hct 33. Plan: Continue KIM and iron supplementation as indicated. Monitor iron studies, reticulocyte count, and adjust therapy as needed. Sepsis Screening Skin Color: Normal WALL,JASVIR M III DO Jul 03, 2025 15:45
--- NOTE | 2025-07-03 16:24 | PROGRESS NOTE ---
Daily Progress Note Providers to CC ~ Antibiotic Timeout Antibiotic Ordered?: Yes Subjective The patient is significantly more oriented today and is oriented x 4. He received dialysis today and worked with physical therapy however physical therapy is recommending and a additional hospital day for strengthening the patient ambulated 25 ft. Objective Vital Signs Date Time Temp Pulse Resp B/P (MAP) Pulse Ox O2 Delivery O2 Flow Rate FiO2 07/03/25 15:00 97.3 79 15 127/67 (87) 97 Room Air 07/03/25 08:00 0.0 Result Diagram: 07/03/25 0255 07/03/25 0255 Gen. No acute distress alert and oriented x 4 Lungs clear to ascultation bilaterally, no wheezes rales or rhonchi appreciated Heart normal sinus rhythm no murmurs rubs or clicks noted Abdomen soft nontender bowel sounds are normoactive Lower extremities no clubbing cyanosis, nor edema appreciated bilaterally Problem\Assessment\Plan Problems/Diagnosis: (1) Altered mental status # encephalopathy likely mixed both toxic and metabolic # possible seizures versus myoclonic jerks secondary to uremia Tele neurology consult is ordered On IV Keppra for now The patient continues to have myoclonic jerks post dialysis Dr. Thompson assistant site manager recommended avoiding or minimizing baclofen in end-stage renal disease in his avoid morphine in end-stage renal disease due to neurotoxicity as well as Ambien however to continue mirtazapine 07/01 I spoke with tele neurologist last evening Dr. Noni CARNEY who assessed that the patient highly likely did not have seizures and that this was consistent with the myoclonic jerks which if not improved in three days then would recommend an continuous EEG however these jerks have since significantly improved and thus is consistent with a mild clonic jerks. The patient is cognition is improving today as well 07/02 significantly improved and close to baseline I did inform the patient of the importance of stopping baclofen in the Ambien 07/03 cognition continues to improve. And is likely at baseline. # sirs # leukocytosis with elevated procalcitonin Blood cultures has been obtained IV Zosyn IV vancomycin 07/01 leukocytosis is improving and blood cultures are negative x1 day 07/02 leukocytosis resolved the patient is afebrile. No signs of sepsis # end-stage renal disease on dialysis Monday and Monday The patient received dialysis today in his followed by assistant site manager Dr. Thompson # anemia likely secondary to end-stage renal disease Continue monitor daily CBC Will likely require Epogen injections per Nephrology 07/01 stable # DVT prophylaxis SQ heparin Disposition: Continue physical therapy discharge in 1-2 days Sepsis Screening Skin Color: Normal Date of Service: Jul 03, 2025 Billing Provider: ESTRELLITA SHEETS DO Common Visit Codes: [id number] INP/OBS CARE(HIGH) ESTRELLITA SHEETS DO Jul 03, 2025 16:24
[2025-07-04] VITALS (12 sets, daily range): BP systolic 105–144; BP diastolic 56–79; PULSE 76–89; RESP 12–18; TEMP 97.5–97.9; O2SAT 97–99
[2025-07-04 02:30] LABS: MEAN PLATELET VOLUME 8.3 FL (7.4-10.4); RED CELL DISTRIBUTION WIDTH 19.5 % (11.5-14.5)
[2025-07-04 02:44] LABS: CREATININE 7.98 MG/DL (0.60-1.10); TOTAL CARBON DIOXIDE 31.2 MMOL/L (24-32); eCRCL 10 ML/MIN; eGFR 7 ML/MIN
[2025-07-04 02:45] LABS: PHOSPHORUS 5.4 MG/DL (2.3-4.5)
[2025-07-04] MEDS: heparin 1,000 units/ml 10ml inj IV ONE (06:29)
[2025-07-04] MEDS: heparin 1,000unit/ml 10ml vial 10 ML IV ONE (06:29)
[2025-07-04] MEDS ORDERED: normal saline 1000ml 100 ML IV PRN (08:00)
[2025-07-04] MEDS ORDERED: AMOX-117 PO (10:52)
[2025-07-04] MEDS ORDERED: PHO667C PO (10:52)
[2025-07-04] MEDS ORDERED: LACT1CAP26 PO (10:52)
[2025-07-04] MEDS ORDERED: MIRT-88 PO (10:52)
[2025-07-04] MEDS: VANCOMYCIN DOSE IV ONE (10:57)
--- NOTE | 2025-07-04 18:59 | DISCHARGE SUMMARY ---
Discharge Summary Providers to CC ~ Discharge Summary Admission Diagnosis: ALOC Hospital Course DATE OF ADMISSION: 06/30/2025 DATE OF DISCHARGE: 07/04/2025 Discharge Diagnosis\\Comment: Mixed encephalopathy toxic and metabolic Myoclonic jerk secondary to uremia Sirs End-stage renal disease on dialysis Anemia Operations\\Procedures: None Consultants: Dr. Thompson cigarette filter inspector, tele neurologist Complications: None Condition on DC: Stable New Medications: Amox Tr/Potassium Clavulanate (Augmentin 875-125 Tablet) 1 Each Tablet 1 TAB PO Q12H for 7 Days, #10 TAB Lactobacillus Rhamnosus (Culturelle) 10 Billion Cell Capsule 1 EACH PO BID, #30 CAP Calcium Acetate (Calcium Acetate) 667 Mg Capsule 1334 MG PO TIDWM, #180 CAP 1 Refill Changed Medications: Mirtazapine (Mirtazapine) 30 Mg Tablet 1 TAB PO HS, #30 TAB 1 Refill (Changed from: Mirtazapine 15 Mg Tablet 1 Tab PO HS) Continued Medications: Aspirin (Aspirin EC) 81 Mg Tablet.dr 1 TAB PO DAILY Carvedilol (Carvedilol) 12.5 Mg Tablet 1 TAB PO BID Chlorpromazine HCl (Chlorpromazine HCl) 25 Mg Tablet 1 TAB PO DAILY Ergocalciferol (Vitamin D2) (Vitamin D2) 50 Mcg (2000 Unit) Capsule 1 CAP PO DAILY Famotidine (Famotidine) 40 Mg Tablet 1 TAB PO DAILY Hydrocodone Bit/Acetaminophen (Hydrocodon-Acetaminoph 7.5-325) 7.5 Mg-325 Mg Tablet 1 TAB PO Q4H PRN for breakthrough pain Losartan Potassium (Losartan Potassium) 50 Mg Tablet 1 TAB PO DAILY for 30 Days, #30 TAB 0 Refills Naloxone HCl (Naloxone HCl) 4 Mg/Actuation Douds 1 SPRAYS BOTHNARES PRN Nifedipine (Nifedipine Er) 30 Mg Tablet.sa 1 TAB PO DAILY ONDANSETRON ODT 4mg tablet (Ondansetron Odt) 4 Mg Tab.rapdis 1 TAB PO every 4 to 6 hours PRN for nausea/vomiting Polyethylene Glycol 3350 ([id number]) 17 Gram/Dose Powder 17 GM PO DAILY Rosuvastatin Calcium (Rosuvastatin Calcium) 20 Mg Tablet 1 TAB PO HS Tamsulosin Hcl* (Flomax*) 0.4 Mg Cap.sr.24h 0.4 MG PO BID Zinc Sulfate (Zinc-220) 50 Mg Zinc (220 Mg) Capsule 1 CAP PO DAILY Discontinued Medications: Zolpidem Tartrate (Ambien) 10 Mg Tablet 1 TAB PO HS Discharge Summary: The patient was admitted by resident physician COURTNEY Marsh , under the supervision of CORRIE Knox MD with the following HPI:"This is a 65 year old male who is a transfer from [facility], presented to the ED with altered level of consciousness. Patient was altered, drowsy, not responding to commands during time of examination, hence the history is taken from other medical records. He is a known end-stage renal disease patient on dialysis. He goes to dialysis on Monday, Monday, and Fridays. It is unknown if he missed any dialysis recently. Last time known normal two days ago. Patient has a history of similar presentation a proximally one month ago and was taken to [facility] with diagnosis of polypharmacy. Patient arrived at [facility] ED with a GCS of 13. He was confused and was not able to answer any questions. He was hypotensive and tachycardic otherwise his vitals were normal. He had a white count of 18, CRP of 3.9 and lactic acid of 2.3. His procalcitonin was 1.7. His troponins were negative and his EKG showed no ST changes or arrhythmia. His electrolytes were normal as well. His creatinine was 8.8. He was only positive for opiates on his drug screen. EMS reported that he did have morphine and baclofen on his medication list. His niece stated that he had been sleeping very much over the last 2 days. Patient was transferred to our facility for higher level of care with dialysis services." The patient was having significant amount of myoclonic activity and initially in the ED of the morning after admission received a page from the patient's nurse who today the patient has a dinorah seizure we did consult tele neurology Dr. Cheney -who assessed in dialysis in patient's with a uremia the myoclonic activity may continue for a few days the patient is evaluated by Dr. Montrell Thompson cigarette filter inspector who strongly recommended discontinue morphine which toxic metabolites build up in dialysis the patient has as well as absolutely discontinuing baclofen and Ambien as well. The patient has Percocet at home. The patient did endorse taking multiple morphine tablets five tablets in fact on the night prior to admission. By the morning of the the patient was essentially at his cognitive baseline however he was a little weak with physical therapy and that has recommended that the patient stated additional evening for physical therapy in the following morning and the patient was cleared for discharge on the morning of the . The patient had for dialysis treatments during hospitalization including on the day of discharge. The patient is sirs on admission [place] [address] this normalized by the morning of the the patient remained afebrile during hospitalization the patient is treated with IV vancomycin IV Zosyn the patient is has a lot of issues with his left knee replacement that is I did discharge the patient with a prescription for Augmentin for additional five days as well as a probiotic. The patient has a history of iron-deficiency however his hemoglobin remained stable during hospitalization was 10.5 on admission and was 10.3 on the day discharge. The patient is hyperphosphatemia with serum phosphorus of 7.2 on admission was started on PhosLo in his serum phosphorus on day discharge was 5.4 the patient will remain on PhosLo and a prescription was sent to the patient's pharmacy. Gen. No acute distress alert and oriented 4 Lungs clear to ascultation bilaterally, no wheezes rales or rhonchi appreciated Heart normal sinus rhythm no murmurs rubs or clicks noted Abdomen soft nontender bowel sounds are normoactive Lower extremities no clubbing cyanosis, nor edema appreciated bilaterally The patient felt ready to be discharged and was medically cleared to be discharged on 07/04/2025 The patient was seen and evaluated on day of discharge. Time spent on discharge 40 minutes *Problems/Diagnosis: (1) Altered mental status Status: Acute (2) ESRD (end stage renal disease) on dialysis Status: Chronic Total Time Spent on D/C: > 30 Minutes Date of Service: Jul 04, 2025 Billing Provider: ESTRELLITA SHEETS DO Common Visit Codes: [id number]/OBS DISCH DAY >30min ESTRELLITA SHEETS DO Jul 04, 2025 18:57
== END 2025-07-04 13:38 | disposition home or self-care (01) | DRG 91 ==
LOC: ER 01:24 → ED HOLD 02:00 → EDBEDREQ 05:41 → PCU 3S 09:55
PROVIDERS: ADMIT Internal Medicine; ATTEND Family Medicine
PROC: 5A1D70Z Performance of Urinary Filtration, Intermittent, Less than 6 Hours Per Day (ICD-10-PCS; principal; 2025-06-30)
PROC: 5A1D70Z Performance of Urinary Filtration, Intermittent, Less than 6 Hours Per Day (ICD-10-PCS; 2025-07-01)
PROC: 5A1D70Z Performance of Urinary Filtration, Intermittent, Less than 6 Hours Per Day (ICD-10-PCS; 2025-07-03)
PROC: 5A1D70Z Performance of Urinary Filtration, Intermittent, Less than 6 Hours Per Day (ICD-10-PCS; 2025-07-04)
DX: G92.8 Other toxic encephalopathy (principal); G93.41 Metabolic encephalopathy; N18.6 End stage renal disease; I12.0 Hypertensive chronic kidney disease with stage 5 chronic kidney disease or end stage renal disease; D63.1 Anemia in chronic kidney disease; E83.39 Other disorders of phosphorus metabolism; R56.9 Unspecified convulsions; G25.3 Myoclonus; R65.10 Systemic inflammatory response syndrome (SIRS) of non-infectious origin without acute organ dysfunction; Z99.2 Dependence on renal dialysis; N25.81 Secondary hyperparathyroidism of renal origin; R09.89 Other specified symptoms and signs involving the circulatory and respiratory systems; Z96.652 Presence of left artificial knee joint; Z82.49 Family history of ischemic heart disease and other diseases of the circulatory system; Z79.82 Long term (current) use of aspirin; Z79.899 Other long term (current) drug therapy
CPT/HCPCS: 36415; 36600; 70450; 71045; 74018; 80048; 80053; 80061; 80202; 82803; 82948; 83036; 83605; 83735; 83880; 84100; 84145; 85018; 85025; 86140; 87040; 87081; 87340; 93005; 96365; 97116; 97161; 97530; 99285; A6212; A6258; A6449; A6590; E1594; G0257; G0378; J0131; J0360; J1171; J1644; J1953; J2543; J3373; J7030; J7040